=== PATIENT | male | born 1960 | race African-American/Black ===

== ENCOUNTER 2021-04-11 02:01 | Emergency (ER) | payer SELFPAY ==
[~2021-04-11] VITALS: Ht 175.3 cm; Wt 68.1 kg
--- NOTE | 2021-04-11 03:12 | PHYS DOC ---
Past Medical History Past Surgical History: Other Additional Past Surgical Histo: CARDIAC STENTS Smoking Status: Current Every Day Smoker Alcohol Use: Heavy General Adult EDM: Chief Complaint: SHORTNESS OF BREATH HPI: HPI: 61-year-old male presents to the emergency department complaining of cough, body aches, chills for the last several days. He has not been vaccinated for Covid, and cannot recall any obvious sick contacts. He denies any chest pain with the cough, admits to feeling mildly short of breath. The patient denies nausea, vomiting, fever, chills, chest pain, abdominal pain, urinary symptoms, or any other complaints. Review of Systems: Review of Systems: ROS otherwise negative except what was mentioned in HPI Heart Score: C/O Chest Pain: No Allergies: Allergies: Allergies Coded Allergies Type Severity Reaction Last Updated Verified No Known Drug Allergies 04/11/21 No Physical Exam: PE: Constitutional: No acute distress, non-toxic appearance. HENT: Atraumatic, bilateral external ears normal, nose normal. Eyes: PERRLA, EOMI, conjunctiva normal, no discharge. Neck: Normal range of motion, supple, no stridor. Cardiovascular: Heart rate regular rhythm. 2+ radial pulses Lungs & Thorax: No respiratory distress, symmetrical expansion. Bilateral breath sounds clear to auscultation Abdomen: Soft, no tenderness Skin: Warm, dry. Extremities: No tenderness, no cyanosis, ROM intact, no edema. Neurologic: Alert and oriented X 3, normal motor function, normal sensory function, no focal deficits noted. Non ataxic gait. GCS 15. Psychologic: Affect normal, judgment normal, mood normal. Current Patient Data: Labs: Laboratory Tests Test 04/11/21 03:25 04/11/21 03:35 White Blood Count 6.6 x10^3/uL (4.0-11.0) Red Blood Count 5.05 x10^6/uL (4.30-5.70) Hemoglobin 16.5 g/dL (13.0-17.5) Hematocrit 47.7 % (39.0-53.0) Mean Corpuscular Volume 95 fL (79-100) Mean Corpuscular Hemoglobin 33 pg (25-35) Mean Corpuscular Hemoglobin Concent 35 g/dL (31-37) Red Cell Distribution Width 15.5 % (11.5-14.5) Platelet Count 241 x10^3/uL (140-400) Neutrophils (%) (Auto) 71 % (31-73) Lymphocytes (%) (Auto) 12 % (24-48) Monocytes (%) (Auto) 15 % (0-9) Eosinophils (%) (Auto) 1 % (0-3) Basophils (%) (Auto) 1 % (0-3) Neutrophils # (Auto) 4.7 x10^3/uL (1.8-7.7) Lymphocytes # (Auto) 0.8 x10^3/uL (1.0-4.8) Monocytes # (Auto) 1.0 x10^3/uL (0.0-1.1) Eosinophils # (Auto) 0.1 x10^3/uL (0.0-0.7) Basophils # (Auto) 0.0 x10^3/uL (0.0-0.2) Sodium Level 141 mmol/L (136-145) Potassium Level 4.1 mmol/L (3.5-5.1) Chloride Level 108 mmol/L (98-107) Carbon Dioxide Level 27 mmol/L (21-32) Anion Gap 6 (6-14) Blood Urea Nitrogen 15 mg/dL (8-26) Creatinine 1.3 mg/dL (0.7-1.3) Estimated GFR (Cockcroft-Gault) 67.7 Glucose Level 104 mg/dL (70-99) Calcium Level 8.9 mg/dL (8.5-10.1) Creatine Kinase 151 U/L (39-308) Troponin I Quantitative < 0.017 ng/mL (0.000-0.055) DX-Dyj-[id number]-Type Natriuretic Peptide 211 pg/mL (0-124) SARS-CoV-2 Antigen (Rapid) Negative (NEGATIVE) Vital Signs: Vital Signs Date Time Temp Pulse Resp B/P (MAP) Pulse Ox O2 Delivery O2 Flow Rate FiO2 04/11/21 02:12 97.7 95 171/103 (125) 95 Room Air 97.7 EKG: EK: Normal sinus rhythm rate of 89, no ST-T wave changes, LVH, no ectopic beats, normal AK, QRS, and QTc intervals. Impression: LVH, no STEMI interpreted by me, Alex Guzmán D.O. Radiology/Procedures: Radiology/Procedures: Chest AP portable at 0314: Reason for examination: Cough. The heart size is normal. Mediastinum is unremarkable. Lung harvey however show mild patchy groundglass opacities bilaterally. Atypical pneumonia cannot be excluded. No pleural effusions are seen no pneumothorax is present. No acute bony abnormalities are evident. IMPRESSION: Mild patchy groundglass opacities bilaterally. Atypical pneumonia cannot be excluded. Recommend clinical correlation and follow-up. Electronically signed by: Gilma Burger MD (04/11/2021 4:16 AM) U Course & Med Decision Making: Course & Med Decision Making X-ray as above, will treat patient for community-acquired pneumonia. His curb 65 score is 0 CURB-65 Score for Pneumonia Severity from [email or web address] on 04/11/2021 RESULT SUMMARY: 0 points Low risk group: 0.6% 30-day mortality. Consider outpatient treatment. INPUTS: Confusion > 0 = No BUN > 19 mg/dL (> 7 mmol/L) > 0 = No Respiratory Rate ? 30 > 0 = No Systolic BP > 0 = No Age ? 65 > 0 = No My Orders - ALEX GUZMÁN DO Procedure Category Date Status Time Cbc W Autodiff LAB 04/11/21 Complete 03:09 Nt-Pro Bnp LAB 04/11/21 Complete 03:09 Basic Metabolic Panel LAB 04/11/21 Complete 03:09 Troponini LAB 04/11/21 Complete 03:09 Sars Cov2 ([place]) LAB 04/11/21 In Process 03:09 Sars Antigen Dulce Rapid LAB 04/11/21 Complete 03:09 Ketorolac 15mg Vial PHA 04/11/21 Complete (Toradol 15mg Vial) 03:30 Iv Normal Saline PHA 04/11/21 Complete 1000ml Bag (Iv Sodium 03:30 Creatine Kinase LAB 04/11/21 Complete 03:09 Ua, Cult If Indicated LAB 04/11/21 Logged 03:09 Chest Ap Only RAD 04/11/21 Resulted 03:09 12 Lead Ekg EKG 04/11/21 Logged 03:12 Ceftriaxone Iv Push PHA 04/11/21 Logged (Rocephin) 05:00 Departure Departure Impression: Primary Impression: Community acquired pneumonia Disposition: 01 HOME / SELF CARE / HOMELESS Condition: STABLE Patient Instructions: Pneumonia, Adult, [id number] Additional Instructions: You were seen in the emergency department for a pneumonia. You should return to the ED if you develop worsening cough, shortness of breath, chest pain, or any other new or concerning symptoms. Your cough may persist for a few weeks but your other symptoms should gradually improve. You should make sure to drink plenty of fluids at home. You have been given a prescription for doxycycline. This medicine is an antibiotic for pneumonia. Please take as prescribed for the full course of the prescription. Do not stop taking the medicine early if you feel better, as this could risk building antibiotic resistance and may put you at risk for a more harmful infection later. The most common side effect of antibiotics include nausea, vomiting, diarrhea and rash. Please come to be evaluated if you develop any symptoms that are concerning to you. One major adverse effect of antibiotics is the development of a diarrheal illness called c. diff colitis, if you develop an excessive amount of diarrhea or are concerned about this please return to the ER or consult a physician. You were seen in the emergency department and were found to have high blood pressure. you need to follow up with the medicine clinic or your primary care doctor for further evaluation and treatment of your blood pressure. You should return to the ED if you develop chest pain, shortness of breath, severe headache, or any other new or concerning symptoms. We started you on a low dose of blood pressure medication, but you may need more than one medication and should have a primary doctor that can further investigate your blood pressure issues. Losing some weight and improving your diet will be helpful in reducing your blood pressure as well. Scripts Doxycycline Hyclate (DOXYCYCLINE HYCLATE) 100 Mg Capsule 1 CAP PO BID for 10 Days, #20 CAP Prov: ALEX GUZMÁN DO 04/11/21 ALEX GUZMÁN DO Apr 11, 2021 03:12
[2021-04-11] MEDS ORDERED: KETOROLAC 15 MG/ML VIAL. IVP ONE (03:30)
[2021-04-11] MEDS ORDERED: IV NORMAL SALINE 1000ML BAG 1,000 ML IV ONE (03:30)
[2021-04-11 03:36] LABS: BASO % 1 % (0-3); EOS # 0.1 x10^3/uL (0.0-0.7); EOS % 1 % (0-3); HEMATOCRIT 47.7 % (39.0-53.0); HEMOGLOBIN 16.5 g/dL (13.0-17.5); LYMPH # 0.8 x10^3/uL (1.0-4.8); LYMPH % 12 % (24-48); MEAN CORPUSCULAR HEMOGLOBIN 33 pg (25-35); MEAN CORPUSCULAR HGB CONC 35 g/dL (31-37); MEAN CORPUSCULAR VOLUME 95 fL (79-100); MONO % 15 % (0-9); NEUT # 4.7 x10^3/uL (1.8-7.7); NEUT % 71 % (31-73); PLATELET COUNT 241 x10^3/uL (140-400); RED BLOOD COUNT 5.05 x10^6/uL (4.30-5.70); RED CELL DISTRIBUTION WIDTH 15.5 % (11.5-14.5); WHITE BLOOD COUNT 6.6 x10^3/uL (4.0-11.0)
[2021-04-11 03:45] LABS: CALCIUM 8.9 mg/dL (8.5-10.1); CREATININE 1.3 mg/dL (0.7-1.3); GFR 67.7; POTASSIUM 4.1 mmol/L (3.5-5.1)
--- NOTE | 2021-04-11 04:18 | RAD ---
Chest AP portable at 0314: Reason for examination: Cough. The heart size is normal. Mediastinum is unremarkable. Lung harvey however show mild patchy groundgla ss opacities bilaterally. Atypical pneumonia cannot be excluded. No pleural effusions are seen no pne umothorax is present. No acute bony abnormalities are evident. IMPRESSION: Mild patchy groundglass opacities bilaterally. Atypical pneumonia cannot be excluded. Recommend clini keo correlation and follow-up. Electronically signed by: Gilma Burger MD (04/11/2021 4:16 AM) JOANNE
[2021-04-11] MEDS ORDERED: DOXY100C3 PO (04:55)
[2021-04-11 05:11] VITALS: BP 147/90
[2021-04-11] MEDS ORDERED: cefTRIAXone IV Push 1 GM VIAL. IVP ONE (05:30)
--- NOTE | 2021-04-11 08:26 | EKG ---
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
--- NOTE | 2021-04-11 17:35 | NUR ---
IP: Attempted to contact pt concerning covid results. No answer, Left a voicemail to return the call.
--- NOTE | 2021-04-12 12:12 | NUR ---
IP: Informed pt of negative covid test. Pt verbalized understanding. He is concerned he has not gotten his prescriptions called to [facility]. I transferred his call to the ED.
== END 2021-04-11 05:25 | disposition home or self-care (01) ==
LOC: ER 02:01
DX: J18.9 Pneumonia, unspecified organism (principal); Z20.822 Contact with and (suspected) exposure to COVID-19; F17.200 Nicotine dependence, unspecified, uncomplicated; Z95.5 Presence of coronary angioplasty implant and graft
CPT/HCPCS: 36415; 71045; 80048; 82550; 83880; 84484; 85025; 87426; 93005; 96361; 96374; 96375; 99285; J0696; J1885; J7030; U0003; U0005

== ENCOUNTER 2021-08-09 12:09 | Emergency (ER) | payer SELFPAY ==
[~2021-08-09] VITALS: Ht 175.3 cm; Wt 68.1 kg
[~2021-08-09 12:09] MED LIST: DOXY100C3 PO
[2021-08-09 13:30] VITALS: BP 178/107
[2021-08-09] MEDS ORDERED: CYCL10TA19 PO (13:41)
[2021-08-09] MEDS ORDERED: LIDO700A21 TP (13:41)
--- NOTE | 2021-08-09 13:42 | PHYS DOC ---
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 He denies loss of bowel or bladder, injury, fall, swelling of the extremity, redness to the extremity, back injury, back pain, nausea or vomiting, focal weakness, loss of sensation. Rates his pain at a 0 out of 10 at this time. He states the pain is worse when he goes to stand up and walk around. Review of Systems: Review of Systems: Constitutional: Denies fever or chills. [] Eyes: Denies change in visual acuity. [] HENT: Denies nasal congestion or sore throat. [] Respiratory: Denies cough or shortness of breath. [] Cardiovascular: Denies chest pain or edema. [] GI: Denies abdominal pain, nausea, vomiting, bloody stools or diarrhea. [] : Denies dysuria. [] Musculoskeletal: Denies back pain or joint pain. + Back of left leg burning pain [] Integument: Denies rash. [] Neurologic: Denies headache, focal weakness or sensory changes. [] Endocrine: Denies polyuria or polydipsia. [] Lymphatic: Denies swollen glands. [] Psychiatric: Denies depression or anxiety. [] Heart Score: C/O Chest Pain: No Allergies: Allergies: Allergies Coded Allergies Type Severity Reaction Last Updated Verified No Known Drug Allergies 04/11/21 No Physical Exam: PE: Constitutional: Well developed, well nourished, no acute distress, non-toxic appearance. [] HENT: Normocephalic, atraumatic, bilateral external ears normal, oropharynx moist, no oral exudates, nose normal. [] Eyes: PERRLA, EOMI, conjunctiva normal, no discharge. [] Neck: Normal range of motion, no tenderness, supple, no stridor. [] Cardiovascular:Heart rate regular rhythm, no murmur [] Lungs & Thorax: Bilateral breath sounds clear to auscultation [] Abdomen: Bowel sounds normal, soft, no tenderness, no masses, no pulsatile masses. [] Skin: Warm, dry, no erythema, no rash. [] Back: No tenderness, no CVA tenderness. [] Extremities: No tenderness, no cyanosis, no clubbing, ROM intact, no edema. [] Neurologic: Alert and oriented X 3, normal motor function, normal sensory function, no focal deficits noted. [] Psychologic: Affect normal, judgement normal, mood normal. [] Normal physical exam EKG: EKG: [] Radiology/Procedures: Radiology/Procedures: [] Course & Med Decision Making: Course & Med Decision Making Pertinent Labs and Imaging studies reviewed. (See chart for details) See HPI. Alert and oriented x4. Ambulatory steady gait. Speaks in full clear sentences. No extremity swelling. No redness. No wounds or signs of infections. No focal weakness. No saddle paresthesia. No sensation loss. Full strength. Full range of motion. No joint swelling or deformities. Pedal pulse not present. Cap refill less than 2 seconds. Patient is given a prescription for muscle relaxer and lidocaine patch. Patient is told he could take a anti-inflammatory. Patient is to have a primary care so he will be given resources for primary care. Shant Disclaimer: [employer] Disclaimer: This electronic medical record was generated, in whole or in part, using a voice recognition dictation system. Departure Departure Impression: Primary Impression: Sciatic nerve pain Qualified Codes: M54.32 - Sciatica, left side Disposition: HOME / SELF CARE / HOMELESS Condition: STABLE Referrals: NO PCP (PCP) Patient Instructions: Sciatica with [facility] Additional Instructions: Follow-up with your primary care provider. Use lidocaine patches to the area but do not put a heating pad over the area. Take ibuprofen to help with pain. If you have swelling in the leg, redness in the leg or suddenly cannot use the leg, lose bowel or bladder return to the ER. Scripts Cyclobenzaprine Hcl (CYCLOBENZAPRINE HCL) 10 Mg Tablet 1 TAB PO TID, #14 TAB Prov: PARAS LY APRN 08/09/21 Lidocaine (Lidocaine PATCH ) 1 Each Adh..patch 1 EACH TP DAILY for FOR LOCAL PAIN, #10 PATCH REMOVE AFTER 12 HOURS Prov: PARAS LY APRN 08/09/21 PARAS YL APRN Aug 09, 2021 13:42
== END 2021-08-09 13:48 | disposition home or self-care (01) ==
LOC: ER 12:09
DX: M54.32 Sciatica, left side (principal); F17.200 Nicotine dependence, unspecified, uncomplicated; F10.20 Alcohol dependence, uncomplicated; Y90.9 Presence of alcohol in blood, level not specified; Z95.5 Presence of coronary angioplasty implant and graft
CPT/HCPCS: 99283